=== PATIENT | female | born 1995 | race African-American/Black ===

== ENCOUNTER → 2021-12-19 | Outpatient (CLI) | payer OTHER | LOC: M RAD 09:46 | PROVIDERS: ATTEND Obstetrics & Gynecology | DX: R10.2 Pelvic and perineal pain (principal); Z97.5 Presence of (intrauterine) contraceptive device ==

== ENCOUNTER → 2022-06-30 | Outpatient (CLI) | payer OTHER ==
[~2022-06-30] MED LIST: ALBU2.5V10 INH; CHEL100T4 PO; GNP28TAB2 PO; RIBO400T PO; TREL1AER IN
== END ==
LOC: M LABSMTC 11:05
PROVIDERS: ATTEND Anesthesiology
DX: Z20.828 Contact with and (suspected) exposure to other viral communicable diseases (principal); Z11.59 Encounter for screening for other viral diseases

== ENCOUNTER 2022-07-02 11:20 | Day surgery (SDC) | payer OTHER ==
[~2022-07-02] VITALS: Ht 165.1 cm; Wt 92.6 kg
[~2022-07-02 11:20] MED LIST changes: +CLINDAMYCIN 900 MG in IV 1 EA IV ONE
[2022-07-02 12:04] LABS: HEMATOCRIT 35.9 % (36.0-47.0); HEMOGLOBIN 11.8 g/dl (12.0-15.5); MEAN CORPUSCULAR HEMOGLOBIN 30.1 pg (27.0-33.0); MEAN CORPUSCULAR HGB CONC 32.9 g/dl (32.0-36.5); MEAN CORPUSCULAR VOLUME 91.6 fl (80.0-96.0); PLATELET COUNT, AUTOMATED 262 10^3/uL (150-450); RED BLOOD COUNT 3.92 10^6/uL (4.00-5.40); WHITE BLOOD COUNT 6.2 10^3/uL (4.0-10.0)
[2022-07-02] MEDS ORDERED: fentaNYL 100 MCG/2 ML INJECTION As Ordered ONE (12:08)
[2022-07-02] MEDS ORDERED: LIDOCAINE 1% SDV 30ML VIAL As Ordered ONE (12:25)
[2022-07-02] MEDS ORDERED: propofoL 200 MG/20 ML VIAL As Ordered ONE (13:18)
[2022-07-02] MEDS ORDERED: LIDOCAINE 2% 100MG/5ML SDV (FOR ANES.) As Ordered ONE (13:18)
[2022-07-02] MEDS ORDERED: POLYSPORIN TOPICAL OINTMENT 15GM As Ordered ONE (13:21)
[2022-07-02 14:33] VITALS: BP 112/59
== END 2022-07-02 14:36 | disposition home or self-care (01) ==
LOC: M SDC 11:20
PROVIDERS: ATTEND Internal Medicine Cardiovascular Disease
DX: O99.891 Other specified diseases and conditions complicating pregnancy (principal); R55 Syncope and collapse; R94.31 Abnormal electrocardiogram [ECG] [EKG]; O99.512 Diseases of the respiratory system complicating pregnancy, second trimester; J45.909 Unspecified asthma, uncomplicated; Z79.51 Long term (current) use of inhaled steroids; Z79.899 Other long term (current) drug therapy; Z88.0 Allergy status to penicillin; Z91.018 Allergy to other foods; Z3A.16 16 weeks gestation of pregnancy
CPT/HCPCS: 33285; 36415; 85027; C1764; J3010